=== PATIENT | male | born 1990 | race Caucasian/White ===

== ENCOUNTER 2024-01-30 00:09 | Emergency (ER) | payer SELFPAY ==
[2024-01-30 01:13] VITALS: BP 139/85; PULSE 90; RESP 16; TEMP 36.9; O2SAT 99; BMI 31.3
[2024-01-30 01:40] LABS: IDNOW Serial# 08D9AD1C; Strep A Nucleic Acid Negative (Negative)
[2024-01-30 02:41] VITALS: BP 138/87; PULSE 112; RESP 16; O2SAT 100
[2024-01-30 03:25] LABS: Influenza A PCR NEGATIVE (Negative); Influenza B PCR NEGATIVE (Negative); Resp Syncy Virus RNA Qual PCR NEGATIVE (Negative); SARS COV2 PCR INHOUSE NEGATIVE (Negative)
== END 2024-01-30 07:51 | disposition left against medical advice (07) ==
PROVIDERS: Emergency Provider Emergency Medicine
DX: K08.89 Other specified disorders of teeth and supporting structures (principal); Z11.52 Encounter for screening for COVID-19
CPT/HCPCS: 0241U; 87651; 99283

== ENCOUNTER 2024-02-17 02:24 | Emergency (ER) | payer SELFPAY ==
[2024-02-17 02:40] VITALS: BP 118/67; PULSE 89; RESP 18; TEMP 36.6; O2SAT 100; BMI 28.9
[2024-02-17] MEDS: Lidocaine HCl 1 % 10 ML VIAL INFILTRATI (04:55)
--- NOTE | 2024-02-17 04:55 | PC.NURSE ---
Dr. Bustos at bedside for drainage of right cheek abscess.
--- NOTE | 2024-02-17 05:27 | ED_ITS ---
HPI - Dental/Oral General Chief complaint: Dental/Oral Stated complaint: Swollen Cheek Time Seen by Provider: 02/17/24 04:45 Source: patient Mode of arrival: ambulatory Limitations: no limitations History of Present Illness HPI Narrative: Patient comes to the emergency room complaining of swelling in the right cheek of the face. Patient states that he is known to have a dental abscess, he is sent to started him on clindamycin. However, over last few days, the pain has decreased but the swelling increased. Patient denies fever chills. Denies diarrhea Related Data Previous Rx's ?Medication ?Instructions ?Recorded Lactobacillus rhamnosus GG 15 1 cap PO DAILY #30 caps 02/17/24 billion cell sprinkle capsule (Culturelle) clindamycin HCl 300 mg capsule 300 mg PO TID 10 days #30 caps 02/17/24 Allergies Allergy/AdvReac Type Severity Reaction Status Date / Time Penicillins [PENICILLINS] Allergy Intermediate RASH Unverified 02/17/24 02:41 Review of Systems Review of Systems: Constitutional : No Weight loss, No Fever, No Chills, No Night Sweats, No Fatigue, No Malaise ENT/Mouth : Complaining of dental/facial swelling on the right side, No Hearing loss, No Ear Pain, No Nasal Congestion, No Sinus Pain, No Hoarseness, No sore throat, No Rhinorrhea, No Swallowing Difficulty Eyes: No Eye Pain, No Swelling, No Redness, No Foreign Body, No Discharge, No Vision Changes Cardiovascular : No Chest Pain, No SOB, No Dyspnea on Exertion, No Orthopnea, No Edema, No Palpitations Respiratory : No Cough, No Sputum, No Wheezing, No Smoke Exposure, No Dyspnea Gastrointestinal : No Nausea, No Vomiting, No Diarrhea, No Constipation, No abdominal Pain, No Hematochezia, No Melena Genitourinary : no irregular bleeding, No Dysuria, No Urinary Frequency, No Hematuria, No Urinary Incontinence, No Urgency, No Flank Pain, No Urinary Flow Changes, No Hesitancy Musculoskeletal : No joint pain, No Myalgias, No Joint Swelling Skin : No Skin Lesions, No rash Neuro : No Weakness, No Numbness, No Paresthesias, No Loss of Consciousness, No Dizziness, No Headache Psych : No Anxiety/Panic, No Depression, No SI/HI/AH/VH, No Social Issues, Heme/Lymph: No Bruising, No Bleeding,No Lymphadenopathy Endocrine : No Polyuria, No Polydipsia, No Temperature Intolerance Physical Exam Vital Signs: Vital Signs: Last Vital Signs Temp 97.9 F 02/17/24 02:40 Pulse 89 02/17/24 02:40 Resp 18 02/17/24 02:40 BP 118/67 02/17/24 02:40 Pulse Ox 100 02/17/24 02:40 O2 Del Method Room Air 02/17/24 02:40 BMI result Body Mass Index 28.9 Const: Other: Appearance: Alert. Oriented X3. No acute distress. Eyes: Pupils equal, round and reactive to light. ENT: Pharynx normal. There is a very large abscess between the gums and the cheek on the inside on the right mandibular side. Neck: Normal inspection. Neck supple. No lymph nodes noted. No crepitus CVS: Normal heart rate and rhythm. Pulses normal. Normal S1 and S2 Respiratory: No respiratory distress. Breath sounds normal. No Wheezing. No rales Abdomen: Soft and nontender. No rigidity. No distention. Skin: Skin warm and dry. Normal skin color. Normal skin turgor. Extremities: No lower extremity edema. No Lacerations. No Rash Neuro: Oriented X 3. No motor deficit. No sensory deficit. Moving all extremities. No slurred speech. CN 2 through 12 grossly intact Psych: calm, cooperative, normal affect Medical Decision Making Medical Decision Making MDM Narrative: -I discussed with the patient that drainage need to be done. Patient was infiltrated with 15 cc of viscous lidocaine. Three small incisions were made. Patient drained at least 20 cc of pus. -I discussed with the patient that we will restart him on clindamycin, patient asked to eat yogurt and start using probiotics. Patient states that he has good follow-up with his dentist, and he usually can get in the same day. Patient will call his dentist today. Differential Diagnosis Differential Diagnoses: The differential diagnosis associated with the presentation includes Procedures Abscess I/D Site: oral Side (if applicable): right Local Anesthetic: lidocaine 1% Amount of anesthesia used (mL): 15 Technique: needle aspiration and incised with blade Amount of fluid expressed (mL): 20 Sent for culture/gram staining?: No Irrigation: Yes Packing used?: none Complications: pain Discharge Plan Discharge Clinical Impression: Dental abscess Patient Disposition: Home, Self-Care Instructions: Dental Abscess (ED) Additional Instructions: Please follow-up with your primary care physician tomorrow. If you have any worsening or new symptoms, please return to the emergency room or call 911 Prescriptions: New clindamycin HCl 300 mg capsule 300 mg PO TID 10 Days Qty: 30 0RF Culturelle 15 billion cell capsule, sprinkle 1 cap PO DAILY Qty: 30 0RF Print Language: Tunisian
[2024-02-17] MEDS: Clindamycin HCL 300 MG CAPSULE PO (06:04)
[2024-02-17 06:07] VITALS: BP 116/70; PULSE 89; RESP 18; TEMP 36.6; O2SAT 100
== END 2024-02-17 06:07 | disposition home or self-care (01) ==
PROVIDERS: Emergency Provider Emergency Medicine
DX: K04.7 Periapical abscess without sinus (principal)
CPT/HCPCS: 41800; 99284

== ENCOUNTER 2024-08-06 09:51 | Emergency (ER) | payer BC, SELFPAY ==
--- NOTE | ~2024-08-06 | CT_ITS ---
EXAMINATION: CT ABDOMEN AND PELVIS WITH CONTRAST CLINICAL INFORMATION: Right lower quadrant pain. COMPARISON: None available. TECHNIQUE: Multidetector volumetric images were obtained from the superior aspect of the liver through the pubic symphysis following administration 85 mL of Omnipaque 350 intravenous contrast. Sagittal and coronal reformatted images were obtained on the technologist's workstation. Oral contrast: No This CT examination was performed using dose optimization techniques as appropriate, variously including the following: *Automated exposure control *Adjustment of mA and/or kV according to patient size (this includes techniques or standardized protocols for targeted exams where dose is matched to indication/reason for exam; i.e. extremities or head) *Use of iterative reconstruction technique DLP: 588 mGy-cm FINDINGS: LUNG BASES: The visualized lung bases are unremarkable. LIVER, GALLBLADDER, AND BILIARY TREE: The liver is normal in size, shape, and attenuation. No focal hepatic lesion or biliary ductal dilatation is present. The gallbladder is unremarkable with no evidence of radiopaque gallstones, gallbladder wall thickening, or obvious pericholecystic inflammatory changes. PANCREAS: Unremarkable. SPLEEN: Unremarkable. ADRENAL GLANDS: Unremarkable. KIDNEYS AND URETERS: The kidneys are symmetric in size and enhancement. No hydronephrosis. No perinephric stranding. BLADDER: Underdistended. GASTROINTESTINAL TRACT: There is fecal impaction in the rectum. No small bowel obstruction. Appendix is air-filled. No surrounding inflammatory changes. ABDOMINAL WALL: No significant hernia is appreciated. LYMPH NODES: No bulky lymphadenopathy. VASCULAR: Normal caliber abdominal aorta. PELVIC VISCERA: Unremarkable. OSSEOUS STRUCTURES: No destructive bone lesions. CT/CT abdomen pelvis w IV con IMPRESSION: No CT evidence of acute appendicitis. Electronically signed by: Hemal Overton MD 08/06/2024 02:19 PM EDT
[2024-08-06 10:06] VITALS: BP 145/87; PULSE 83; RESP 16; TEMP 36.8; O2SAT 100; BMI 30.5
[2024-08-06 10:15] LABS: Glucose, Whole Blood 351 mg/dL (60-115)
[2024-08-06 10:22] LABS: MANUAL DIFF FLAG NO
[2024-08-06 10:25] LABS: Basophils Percent Auto 0.4 % (0-2); Eosinophils Absolute Auto 0.1 X10*3/uL (0.0-0.4); Eosinophils Percent Auto 1.1 % (0-4); Hematocrit 44.5 % (42.0-52.0); Hemoglobin 15.8 g/dl (14.0-18.0); Imm Gran Abs Auto 0.05 X10*3/uL (0.00-0.03); Imm Gran Pct Auto 0.6 % (0.0-0.4); Lymphocytes Absolute Auto 1.4 X10*3/uL (1.2-4.9); Lymphocytes Percent Auto 17.3 % (20-40); Mean Corpuscular HGB Conc 35.5 g/dl (31.0-36.0); Mean Corpuscular Hemoglobin 28.9 pg (27.0-33.0); Mean Corpuscular Volume 81.5 fL (80.0-98.0); Mean Platelet Volume 10.7 fL (9.4-12.4); Monocytes Absolute Auto 0.5 X10*3/uL (0.1-1.2); Monocytes Percent Auto 5.9 % (2-11); Neutrophils Absolute Auto 6.1 x10*3/uL (2.0-8.3); Neutrophils Percent Auto 74.7 % (45-73); Platelet Count 196 X10*3/uL (160-400); Red Blood Count 5.46 X10*6/uL (4.60-5.80); Red Cell Distribution Width 12.2 % (11.0-16.0); White Blood Count 8.2 X10*3/uL (4.8-10.8)
[2024-08-06 10:41] LABS: Alanine Aminotransferase 14 U/L (0-40); Albumin Level 4.3 g/dL (3.5-5.0); Alkaline Phosphatase 93 U/L (39-117); Anion Gap 9 (12-20); Aspartate Amino Transferase 13 U/L (5-37); Bilirubin Total 0.6 mg/dL (0.0-1.0); Blood Urea Nitrogen 11 mg/dL (9-16); Calcium 9.1 mg/dL (8.4-10.2); Carbon Dioxide 29 mmol/L (22-29); Chloride 106 mmol/L (96-108); Creatinine Clr Calc Pharmacy 121.4; Estimated Glomerular Filt Rate > 60; Glucose Random 342 mg/dL (60-115); Sodium 140 mmol/L (135-145); Total Protein 6.9 g/dL (6.5-8.0)
--- NOTE | 2024-08-06 10:51 | ED.GENADULT ---
HPI - General Adult General Chief complaint: Abdominal Pain Stated complaint: Abd pain Time Seen by Provider: 08/06/24 10:49 Source: patient Mode of arrival: ambulatory Limitations: no limitations History of Present Illness ED Provider: akshat SHANE narrative: Patient is a 34-year-old uncircumcised male presenting to the emergency department with complaint of right lower quadrant abdominal pain radiating around to back for the past few days as well as swelling to foreskin for the past week. Denies nausea, vomiting, diarrhea, or constipation. Denies fevers. Reports white discharge at onset of urine stream at times. Has been applying OTC lotrimin to foreskin with little change. He is able to partially retract the foreskin, and has not had any difficulty urinating. Denies any known history of diabetes but reports family history positive for DM. Reports recent polydipsia and polyuria. MD complaint: abdominal pain, foreskin swelling Onset (ago): day(s) Location: abdomen Radiation: back Severity: moderate Quality: aching Pain Consistency: colicky Associated symptoms: other Treatments prior to arrival: other Related Data Previous Rx's ?Medication ?Instructions ?Recorded Lactobacillus rhamnosus GG 15 1 cap PO DAILY #30 caps 02/17/24 billion cell sprinkle capsule (Culturelle) clindamycin HCl 300 mg capsule 300 mg PO TID 10 days #30 caps 02/17/24 clotrimazole 1 % topical cream 1 appl topical BID 4 weeks #30 08/06/24 grams metformin 500 mg tablet 500 mg PO BID #60 tabs 08/06/24 Allergies Allergy/AdvReac Type Severity Reaction Status Date / Time Penicillins [PENICILLINS] Allergy Intermediate RASH Verified 08/06/24 10:06 Review of Systems Review of Systems: As per HPI. Yes all other systems are reviewed and are negative Constitutional: Constitutional: Reports as per HPI PMFSH Social History Social History Smoked in Last 30 Days: No Use of substances other than those prescribed or required for medical reasons: No Advance Directives: No Advance Directives Information Provided: Yes Do you have a plan to hurt others: No Plan Physical Exam ED Vital Signs: Vital Signs - 24 hr 08/06/24 10:06 08/06/24 10:56 08/06/24 12:00 Temperature 98.2 F 98.3 F 97.4 F Pulse Rate 83 81 75 Respiratory Rate 16 18 16 Blood Pressure 145/87 H 149/81 H 118/73 Pulse Oximetry 100 99 100 Oxygen Delivery Method Room Air Room Air Room Air BMI result Body Mass Index 30.5 Vital signs have been reviewed and appear to be correct. Blood pressure normal. Heart rate normal. Respiratory rate normal. Temperature normal. Oxygen saturation normal. Const General: cooperative, healthy appearing and no acute distress Orientation/consciousness: oriented to person, oriented to place, oriented to time and patient oriented x3 Limitations: no limitations HENVT Head: Yes normocephalic and Yes atraumatic Ears: external ears normal General nose exam: Normal external nose present Face and sinus: Yes face symmetric Mouth: oropharynx normal and moist mucous membranes Throat: Yes uvula midline Eyes Pupils: Equal, round and reactive pupils present Neck Neck: Yes normal visual inspection and Yes supple Resp Effort & Inspection: normal respiratory effort and able to speak in complete sentences Auscultation: clear to auscultation bilaterally Cardio Rate: regular rate Rhythm: regular rhythm Heart sounds: S1 normal heart sound present and S2 normal heart sound present GI Palpation (GI): Soft to palpation and nontender Auscultation: normoactive bowel sounds Other: Exam chaperoned by ANAHY Napier. General: Yes no CVA tenderness Penis: uncircumcised, non retractile foreskin, Localized penile swelling present and other (fissures) Scrotum: scrotum normal Back/Spine/Pelvis Back: no CVA tenderness Skin General skin exam: elasticity normal and turgor normal Neuro General: oriented to person, oriented to place, oriented to time, patient oriented x3, moves all extremities, no focal motor deficits and CN's II-XI intact bilaterally Cranial nerves: Yes Equal, round and reactive pupils present Cognition (Neuro): normal cognition Extrem General: Yes full ROM, Yes no pedal edema and Yes no calf tenderness Psych Mental Status: mental status grossly normal Affect: normal affect Thought process: Normal thought process present Medications Administered Discontinued Medications Generic Name Dose Route Start Last Admin Trade Name Freq PRN Reason Stop Dose Admin Iohexol 100 ml 08/06/24 12:36 08/06/24 12:36 Iohexol 350 Mg/Ml 100 Ml Infus..Btl IV 08/06/24 12:37 85 ml ONCE ONE Administration Medical Decision Making Medical Decision Making [facility] Narrative: Patient is a 34-year-old uncircumcised male presenting to the emergency department with complaint of right lower quadrant abdominal pain radiating around to back for the past few days as well as swelling to foreskin for the past week. On exam patient is awake, A+Ox3, VS WNL, afebrile, normal neurological exam without focal deficits, physical exam findings as above. Given reported symptoms and physical exam findings, initial differential includes appendicitis, ureteral calculi, hydronephrosis, UTI, balanitis, diabetes. Do not suspect phimosis as patient can partially retract foreskin and has not had difficulty urinating. Do not suspect Bipin's. Labs notable for hyperglycemia without anion gap, no evidence of DKA, hemoglobin A1c 11.3. Urinalysis is without evidence of infection. CT NG negative. CT notable for no evidence of appendicitis. My interpretation is in agreement with the radiologist's interpretation. Results discussed with patient and all questions answered, will start on metformin, and instructed patient he will need to establish care with a PCP for ongoing management of his diabetes. Will treat balanitis with clotrimazole. Return precautions discussed at bedside. Patient verbalized understanding of and agreement with plan. Differential Diagnosis Differential Diagnoses: The differential diagnosis associated with the presentation includes As per [facility] Admission/Observation Consideration of admission/observation: Escalation of care including admission/observation considered Patient would have been admitted to the hospital had their work up had any findings where hospital admission was appropriate and their clinical presentation warranted hospital admission. Lab Data [facility] Lab Attestation statement: I reviewed the patient's lab results. as per [facility] 08/06/24 10:18 08/06/24 10:18 Labs: Lab Results 08/06/24 08/06/24 08/06/24 Range/Units 10:10 10:18 11:10 WBC 8.2 (4.8-10.8) X10*3/uL RBC 5.46 (4.60-5.80) X10*6/uL Hgb 15.8 (14.0-18.0) g/dl Hct 44.5 (42.0-52.0) % MCV 81.5 (80.0-98.0) fL MCH 28.9 (27.0-33.0) pg MCHC 35.5 (31.0-36.0) g/dl RDW 12.2 (11.0-16.0) % Plt Count 196 (160-400) X10*3/uL MPV 10.7 (9.4-12.4) fL Immature Gran % (Auto) 0.6 H (0.0-0.4) % Neut % (Auto) 74.7 H (45-73) % Lymph % (Auto) 17.3 L (20-40) % Wallace % (Auto) 5.9 (2-11) % Eos % (Auto) 1.1 (0-4) % Baso % (Auto) 0.4 (0-2) % Lymph # (Auto) 1.4 (1.2-4.9) X10*3/uL Wallace # (Auto) 0.5 (0.1-1.2) X10*3/uL Eos # (Auto) 0.1 (0.0-0.4) X10*3/uL Baso # (Auto) 0.0 (0.0-0.2) X10*3/uL Abs Immat Gran (auto) 0.05 H (0.00-0.03) X10*3/uL Absolute Neuts (auto) 6.1 (2.0-8.3) x10*3/uL Absolute Nucleated RBC 0.000 (0.0-0.012) X10*3/uL Nucleated RBC % (auto) 0.0 (0.0-0.2) /100WBC Sodium 140 (135-145) mmol/L Potassium 4.0 (3.3-5.1) mmol/L Chloride 106 (96-108) mmol/L Carbon Dioxide 29 (22-29) mmol/L Anion Gap 9 L (12-20) BUN 11 (9-16) mg/dL Creatinine 0.95 (0.5-1.4) mg/dL Estim Creat Clear Calc 121.4 Estimated GFR > 60 POC Glucose 351 H* (60-115) mg/dL Random Glucose 342 H (60-115) mg/dL Estimat Average Glucose 278 mg/dL Hemoglobin A1c % 11.3 H (<6.0) % Calcium 9.1 (8.4-10.2) mg/dL Total Bilirubin 0.6 (0.0-1.0) mg/dL AST 13 (5-37) U/L ALT 14 (0-40) U/L Alkaline Phosphatase 93 (39-117) U/L Total Protein 6.9 (6.5-8.0) g/dL Albumin 4.3 (3.5-5.0) g/dL Urine Color Yellow Urine Appearance Clear Urine pH 5.5 (5.0-9.0) Ur Specific [place] >= 1.030 H (1.005-1.025) Urine Protein Negative (Neg-Trace) mg/dL Urine Glucose (UA) >=1000 H (Negative) mg/dL Urine Ketones Negative (Negative) mg/dL Urine Blood Negative (Negative) Urine Nitrite Negative (Negative) Ur Leukocyte Esterase Negative (Negative) Urine RBC 0-2 (0-2) /HPF Urine WBC 0-5 (0-5) /HPF Ur Squamous Epith Cells 0-2 (0-2) /HPF Urine Bacteria None Seen (None Seen) Hyaline Casts 0-2 (0-2) /LPF Chlam trachomat DNA PCR NOT DETECTED (Not Detect.) N.gonorrhoeae DNA (PCR) NOT DETECTED (Not Detect.) Independent Interpretation I performed an independent interpretation of an: CT Scan Interpretation: No evidence of appendicitis or other acute abnormality of CT A/P. Radiology Impression Discussion of test interpretation with radiology: I have reviewed the radiologist's reading. Radiologist Impression: CT/CT abdomen pelvis w IV con IMPRESSION: No CT evidence of acute appendicitis. External Record Review External record reviewed: Inpatient record, Office record and Outpatient record Prescription Management I considered prescription management with: Other Discharge Plan Discharge Clinical Impression: Balanitis, New onset type 2 diabetes mellitus Patient Disposition: Home, Self-Care Instructions: Metformin (By mouth), Type 2 Diabetes in Adults: New Diagnosis (DC), Balanitis (ED), Diabetes and Your Skin (ED), Diabetes and Nutrition (ED), Diabetes and Exercise (ED) Additional Instructions: You were evaluated in the emergency department today for abdominal pain. Your labs show evidence of new onset diabetes, and you are being started on a medication called Metformin to control your blood glucose levels. Take this as prescribed. You are also being treated for a skin infection of your penis, called balanitis. It is very important that you establish care with a primary care provider for ongoing management of your diabetes. Return to the emergency deparment if you develop increased swelling, discharge, are unable to urinate, develop a fever, have dizziness, lightheadedness, fainting, or any other new or concerning symptoms. Prescriptions: New metformin 500 mg tablet 500 mg PO BID Qty: 60 0RF clotrimazole 1 % cream 1 appl topical BID 28 Days Qty: 30 0RF Rx Instructions: or until symptoms resolve No Action clindamycin HCl 300 mg capsule 300 mg PO TID 10 Days Qty: 30 0RF Culturelle 15 billion cell capsule, sprinkle 1 cap PO DAILY Qty: 30 0RF Referrals: [facility] Family Medicine [Provider Group] [facility] Primary Care, Tessa [Provider Group] [facility] Primary Care,Matthew [Provider Group] [facility] In [facility] [Provider Group] Print Language: Azerbaijani
[2024-08-06 10:56] VITALS: BP 149/81; PULSE 81; RESP 18; TEMP 36.8; O2SAT 99
[2024-08-06 11:19] LABS: Appearance Urine Clear; Color Urine Yellow; Glucose Urine UA >=1000 mg/dL (Negative); Leukocyte Esterase Urine Negative (Negative); Nitrite Urine Negative (Negative); PH 5.5 (5.0-9.0); Specific Gravity - Urine >= 1.030 (1.005-1.025); UMIC TRIGGER UACC YES; Urine Blood Negative (Negative); Urine Ketones Negative (Negative); Urine Protein Negative (Neg-Trace)
[2024-08-06 11:25] LABS: Estimated Average Glucose 278 mg/dL; Hemoglobin A1c % 11.3 % (<6.0); Total Hemoglobin (HGBA1C) 4056.6085 umol/L
[2024-08-06 11:25] LABS: Bacteria Urine None Seen (None Seen); Hyaline Casts Urine 0-2 /LPF (0-2); RBC Urine 0-2 /HPF (0-2); Squamous Epithelial Cell Urine 0-2 /HPF (0-2); WBC Urine 0-5 /HPF (0-5)
[2024-08-06 12:00] VITALS: BP 118/73; PULSE 75; RESP 16; TEMP 36.3; O2SAT 100
[2024-08-06] MEDS: iohexoL 350 MG/ML 100 ML INFUS..BTL IV (12:36)
[2024-08-06 13:42] LABS: CT PCR NOT DETECTED (Not Detect.); NG PCR NOT DETECTED (Not Detect.)
[2024-08-06 15:40] VITALS: BP 120/72; PULSE 74; RESP 18; TEMP 36.6; O2SAT 97
== END 2024-08-06 15:41 | disposition home or self-care (01) ==
PROVIDERS: Registered Nurse Emergency; Emergency Provider Emergency Medicine
DX: E11.65 Type 2 diabetes mellitus with hyperglycemia (principal); R10.31 Right lower quadrant pain; R36.9 Urethral discharge, unspecified; R63.1 Polydipsia; R35.89 Other polyuria
CPT/HCPCS: 36415; 74177; 80053; 81001; 82947; 83036; 85025; 87491; 87591; 99284; Q9967

== ENCOUNTER 2024-09-30 16:52 | Emergency (ER) | payer BC, SELFPAY ==
--- NOTE | ~2024-09-30 | XR_ITS ---
EXAMINATION: XR chest 2V CLINICAL INFORMATION: chest pain COMPARISON: Chest radiograph 02/04/2020 TECHNIQUE: 2 views of the chest FINDINGS: Clear lungs. No pneumothorax. No pleural effusion. Unchanged cardiomediastinal silhouette. XR/XR chest 2V IMPRESSION: No acute cardiopulmonary findings. Electronically signed by: Ivanna Amos MD 09/30/2024 05:55 PM [facility] [place]
--- NOTE | 2024-09-30 16:58 | ECG_ITS ---
Test Reason : chest pain Blood Pressure : / mmHG Vent. Rate : 088 BPM Atrial Rate : 088 BPM P-R Int : 136 ms QRS Dur : 082 ms QT Int : 340 ms P-R-T Axes : 045 008 026 degrees QTc Int : 411 ms Normal sinus rhythm Normal ECG No previous ECGs available Referred By: Shea Ward Electronically Signed By:Edward Schilling
[2024-09-30 17:05] VITALS: BP 144/81; PULSE 86; RESP 18; TEMP 36.6; O2SAT 98; BMI 28.1
--- NOTE | 2024-09-30 17:05 | ED_ITS ---
HPI - General Adult General Chief complaint: Chest Pain Stated complaint: Chest pain Time Seen by Provider: 09/30/24 20:02 Source: patient, RN notes reviewed and old records reviewed Mode of arrival: ambulatory Limitations: no limitations History of Present Illness ED Provider: Ovidio SHANE narrative: 34-year-old male with past medical history significant for diabetes presents for evaluation of left-sided chest pain. He reports that his pain radiates to his left shoulder He has had the pain for the last few days pain His pain is worse with movement. He denies any shortness of breath, palpitations. He was diagnosed with diabetes in July and was started on metformin. He reports that he ran out of his metformin yesterday. He also was diagnosed with balanitis on July and reports that it never truly went away Related Data Previous Rx's ?Medication ?Instructions ?Recorded Lactobacillus rhamnosus GG 15 1 cap PO DAILY #30 caps 02/17/24 billion cell sprinkle capsule (Culturelle) clindamycin HCl 300 mg capsule 300 mg PO TID 10 days #30 caps 02/17/24 clotrimazole 1 % topical cream 1 appl topical BID 4 weeks #30 08/06/24 grams metformin 500 mg tablet 500 mg PO BID #60 tabs 08/06/24 clotrimazole 1 % topical ointment 1 appl topical BID 2 weeks #56.7 09/30/24 grams metformin 500 mg tablet 500 mg PO BID #60 tabs 09/30/24 Allergies Allergy/AdvReac Type Severity Reaction Status Date / Time Penicillins [PENICILLINS] Allergy Intermediate RASH Verified 09/30/24 17:06 Review of Systems 2 Constitutional: Constitutional: Denies body ache(s), Denies chills and Denies fever(s) Eyes: Eyes: Denies blurry vision ENT: Denies vertigo and Denies dizziness Cardiovascular: Cardiovascular: Reports chest pain Respiratory: Respiratory: Denies cough Gastrointestinal: Gastrointestinal: Denies abdominal pain Musculoskeletal: Musculoskeletal: Denies back pain, Reports arthralgias, Reports joint swelling, Reports limited range of motion and Reports radiating pain into limb Integumentary/Breasts: Skin/Breast: Denies rash Neurologic: Denies vertigo and Denies dizziness PMFSH Social History Social History Advance Directives: No Advance Directives Information Provided: No Do you have a plan to hurt others: No Plan Physical Exam ED Vital Signs: Vital Signs - 24 hr 09/30/24 17:05 09/30/24 19:20 09/30/24 20:27 Temperature 98 F 98.3 F Pulse Rate 86 73 73 Respiratory Rate 18 12 12 Blood Pressure 144/81 H 119/64 119/64 Pulse Oximetry 98 99 99 Oxygen Delivery Method Room Air Room Air Room Air BMI result Body Mass Index 28.1 Const General: healthy appearing, comfortable, no acute distress, alert and awake Nutritional Appearance: well nourished Orientation/consciousness: patient oriented x3 HENMT Head: Yes normocephalic and Yes atraumatic Eyes Eyelids: Yes eyelids normal Conjunctivae: conjunctivae normal Sclerae: sclerae normal Corneas: corneas normal Pupils: Equal, round and reactive pupils present EOM: EOMs intact bilaterally Neck Neck: Yes full ROM Chest Other: Tenderness to palpation of the left chest wall into the left anterior shoulder. No deformity. The patient has full range of motion of the left upper extremity at the shoulder, elbow and wrist. Resp Effort & Inspection: normal respiratory effort, able to speak in complete sentences and not labored Other: Mild edema to the foreskin. No obvious drainage from the urethra Back/Spine/Pelvis Other: Tenderness to the left trapezius muscle group. Skin General skin exam: elasticity normal Neuro General: patient oriented x3 Cranial nerves: Yes Equal, round and reactive pupils present and Yes Bilaterally intact EOM present Cognition (Neuro): normal cognition Extrem Other: Moving all extremities well without any obvious deformities Course Course Course Narrative: This is a rapid medical exam performed by Farida Ward NP: Additional HPI, ROS, PE not included below will be deferred to primary provider. Patient is a 34-year-old male presenting to the ED with complaint of left sided chest pain radiating to shoulder for the past few days. Denies other symptoms. Plan: EKG, labs, CXR Medications Administered Discontinued Medications Generic Name Dose Route Start Last Admin Trade Name Freq PRN Reason Stop Dose Admin Ketorolac Tromethamine 30 mg 09/30/24 20:12 09/30/24 20:21 Ketorolac Tromethamine 30 Mg/Ml Vial IM 09/30/24 20:13 30 mg ONCE ONE Administration Metformin HCl 1,000 mg 09/30/24 20:12 09/30/24 20:21 Metformin Hcl 1,000 Mg Tablet PO 09/30/24 20:13 1,000 mg ONCE ONE Administration Medical Decision Making Medical Decision Making [facility] Narrative: 34-year-old male past medical history significant for diabetes presents for evaluation of chest pain. His cardiac workup was negative, his EKG is nonischemic, troponin negative despite several days of chest pain. His pain is reproducible. This is most likely musculoskeletal pain. The patient also has a balanitis that he has had for a couple of months. I discussed this with the patient we will give him another prescription for clotrimazole. I will refer the patient to Urology as you may benefit from circumcision if his symptoms do not improve. The patient also would like a refill of his metformin which I provided for 1 month. He was having difficulty getting into a PCP Differential Diagnosis Differential Diagnoses: The differential diagnosis associated with the presentation includes Chest pain ACS less likely Balanitis Muscle strain Costochondritis GERD Admission/Observation Consideration of admission/observation: Escalation of care including admission/observation considered Patient rules out for ACS Lab Data [facility] Lab Attestation statement: I reviewed the patient's lab results. No leukocytosis or significant anemia. Normal platelet count. No electrolyte abnormalities. Random glucose elevated at 273. There was no evidence of DKA the patient has not take his metformin today 09/30/24 17:25 09/30/24 17:25 Labs: Lab Results 09/30/24 Range/Units 17:25 WBC 8.3 (4.8-10.8) X10*3/uL RBC 5.26 (4.60-5.80) X10*6/uL Hgb 15.0 (14.0-18.0) g/dl Hct 41.5 L (42.0-52.0) % MCV 78.9 L (80.0-98.0) fL MCH 28.5 (27.0-33.0) pg MCHC 36.1 H (31.0-36.0) g/dl RDW 12.0 (11.0-16.0) % Plt Count 224 (160-400) X10*3/uL MPV 10.7 (9.4-12.4) fL Immature Gran % (Auto) 0.5 H (0.0-0.4) % Neut % (Auto) 60.7 (45-73) % Lymph % (Auto) 26.8 (20-40) % [place] % (Auto) 5.4 (2-11) % Eos % (Auto) 6.1 H (0-4) % Baso % (Auto) 0.5 (0-2) % Lymph # (Auto) 2.2 (1.2-4.9) X10*3/uL [place] # (Auto) 0.5 (0.1-1.2) X10*3/uL Eos # (Auto) 0.5 H (0.0-0.4) X10*3/uL Baso # (Auto) 0.0 (0.0-0.2) X10*3/uL Abs Immat Gran (auto) 0.04 H (0.00-0.03) X10*3/uL Absolute Neuts (auto) 5.0 (2.0-8.3) x10*3/uL Absolute Nucleated RBC 0.000 (0.0-0.012) X10*3/uL Nucleated RBC % (auto) 0.0 (0.0-0.2) /100WBC PT 10.6 L (10.9-12.4) SEC INR 0.9 (0.9-1.1) Sodium 141 (135-145) mmol/L Potassium 4.1 (3.3-5.1) mmol/L Chloride 108 (96-108) mmol/L Carbon Dioxide 27 (22-29) mmol/L Anion Gap 10 L (12-20) BUN 19 H (9-16) mg/dL Creatinine 0.91 (0.5-1.4) mg/dL Estim Creat Clear Calc 122.0 Estimated GFR > 60 Random Glucose 273 H (60-115) mg/dL Calcium 8.9 (8.4-10.2) mg/dL Total Bilirubin 0.4 (0.0-1.0) mg/dL AST 15 (5-37) U/L ALT 12 (0-40) U/L Alkaline Phosphatase 79 (39-117) U/L Troponin I High Sens < 2.7 (<3.5-35.0) ng/L Total Protein 7.1 (6.5-8.0) g/dL Albumin 4.3 (3.5-5.0) g/dL Independent Interpretation I performed an independent interpretation of an: EKG (Normal sinus rhythm with a rate of [address] segment elevation or depressions. Nondiagnostic EKG) Radiology Impression Discussion of test interpretation with radiology: I have reviewed the radiologist's reading. Radiologist Impression: FINDINGS: Clear lungs. No pneumothorax. No pleural effusion. Unchanged cardiomediastinal silhouette. XR/XR chest 2V IMPRESSION: No acute cardiopulmonary findings. Electronically signed by: Ivanna Amos MD 09/30/2024 05:55 PM [facility] [place] Discharge Clinical Impression: Chest pain, Acute hyperglycemia, Balanitis Patient Disposition: Home, Self-Care Instructions: Chest Pain (ED), Diabetic Hyperglycemia (ED) Additional Instructions: Your workup in the ER today was reassuring. This includes your blood work, EKG, chest x-ray. Your pain is most likely related to a muscle strain. Use ibuprofen or Tylenol for pain. I recommend using clotrimazole with betamethasone Prescriptions: New clotrimazole 1 % ointment 1 appl topical BID 14 Days Qty: 56.7 0RF metformin 500 mg tablet 500 mg PO BID Qty: 60 0RF No Action clindamycin HCl 300 mg capsule 300 mg PO TID 10 Days Qty: 30 0RF Culturelle 15 billion cell capsule, sprinkle 1 cap PO DAILY Qty: 30 0RF metformin 500 mg tablet 500 mg PO BID Qty: 60 0RF clotrimazole 1 % cream 1 appl topical BID 28 Days Qty: 30 0RF Rx Instructions: or until symptoms resolve Referrals: Candido Chery MD [Physician] - (recurrent balanitis) Interventions: ED Discharge Assessment Last Done: 09/30/24 20:27 Discharge Date/Time: 09/30/24 20:29 Print Language: Arabic
[2024-09-30 17:29] LABS: MANUAL DIFF FLAG NO
[2024-09-30 17:34] LABS: Basophils Percent Auto 0.5 % (0-2); Eosinophils Absolute Auto 0.5 X10*3/uL (0.0-0.4); Eosinophils Percent Auto 6.1 % (0-4); Hematocrit 41.5 % (42.0-52.0); Imm Gran Abs Auto 0.04 X10*3/uL (0.00-0.03); Imm Gran Pct Auto 0.5 % (0.0-0.4); Lymphocytes Absolute Auto 2.2 X10*3/uL (1.2-4.9); Lymphocytes Percent Auto 26.8 % (20-40); Mean Corpuscular HGB Conc 36.1 g/dl (31.0-36.0); Mean Corpuscular Hemoglobin 28.5 pg (27.0-33.0); Mean Corpuscular Volume 78.9 fL (80.0-98.0); Mean Platelet Volume 10.7 fL (9.4-12.4); Monocytes Absolute Auto 0.5 X10*3/uL (0.1-1.2); Monocytes Percent Auto 5.4 % (2-11); Neutrophils Percent Auto 60.7 % (45-73); Platelet Count 224 X10*3/uL (160-400); Red Blood Count 5.26 X10*6/uL (4.60-5.80); White Blood Count 8.3 X10*3/uL (4.8-10.8)
[2024-09-30 17:44] LABS: Alanine Aminotransferase 12 U/L (0-40); Albumin Level 4.3 g/dL (3.5-5.0); Alkaline Phosphatase 79 U/L (39-117); Anion Gap 10 (12-20); Aspartate Amino Transferase 15 U/L (5-37); Bilirubin Total 0.4 mg/dL (0.0-1.0); Blood Urea Nitrogen 19 mg/dL (9-16); Calcium 8.9 mg/dL (8.4-10.2); Carbon Dioxide 27 mmol/L (22-29); Chloride 108 mmol/L (96-108); Estimated Glomerular Filt Rate > 60; Glucose Random 273 mg/dL (60-115); Potassium 4.1 mmol/L (3.3-5.1); Sodium 141 mmol/L (135-145); Total Protein 7.1 g/dL (6.5-8.0)
[2024-09-30 17:47] LABS: INTERNATIONAL NORM RATIO 0.9 (0.9-1.1); Prothrombin Time 10.6 SEC (10.9-12.4)
[2024-09-30 17:57] LABS: Troponin-I High Sensitivity < 2.7 ng/L (<3.5-35.0)
[2024-09-30 19:20] VITALS: BP 119/64; PULSE 73; RESP 12; O2SAT 99
[2024-09-30] MEDS: metFORMIN HCl 1,000 MG TABLET 1000 MG PO (20:21)
[2024-09-30] MEDS: Ketorolac Tromethamine 30 MG/ML VIAL IM (20:21)
[2024-09-30 20:27] VITALS: BP 119/64; PULSE 73; RESP 12; TEMP 36.8; O2SAT 99
== END 2024-09-30 20:29 | disposition home or self-care (01) ==
PROVIDERS: Registered Nurse Emergency; Emergency Provider Emergency Medicine
DX: R07.89 Other chest pain (principal); E11.65 Type 2 diabetes mellitus with hyperglycemia; N48.1 Balanitis; M25.512 Pain in left shoulder; Z79.84 Long term (current) use of oral hypoglycemic drugs; Z79.899 Other long term (current) drug therapy
CPT/HCPCS: 36415; 71046; 80053; 84484; 85025; 85610; 93005; 96372; 99284; J1885

== ENCOUNTER → 2024-09-30 16:58 | Outpatient (BNV) | payer BC, SELFPAY | PROVIDERS: Emergency Provider Emergency Medicine; Visit Provider Internal Medicine Cardiovascular Disease | DX: R07.9 Chest pain, unspecified (principal) | CPT/HCPCS: 93010 ==

== ENCOUNTER → 2024-11-16 11:28 | Outpatient (BNVA) | payer BC, SELFPAY | PROVIDERS: Visit Provider Urology ==

== ENCOUNTER → 2024-11-16 11:28 | Outpatient (AMB) | payer BC, SELFPAY | END | disposition home or self-care (01) | PROVIDERS: Visit Provider Urology | CPT/HCPCS: 99204 ==

== ENCOUNTER 2025-02-26 07:51 | Outpatient (REF) | payer BC, SELFPAY ==
--- OUTSIDE RECORDS SUMMARY | 2025-02-26 07:55 | XMS_ITS | Clinical Summary ---
Author Organization [employer] [facility] Address [address] [place] [address] Care Team Providers Care Chief Substation Operator Name Role Phone Unavailable Primary Care Provider Unavailabl e Allergies Active Allergy Reactions Criticality Noted Date Comments Penicillin G 09/29/2018 Medications chlorhexidine (Peridex) 0.12 % solution Swish 15 mL morning and night for 1 minute. Spit, do not swallow. Do not eat or drink for 30 minutes following use. 473 mL 4 Active Additional Information Patient not taking.Reported on 03/15/2024 acetaminophen (Tylenol) 500 MG tablet Take 1 tablet (500 mg) by mouth every 6 (six) hours if needed for mild pain for up to 20 doses. 20 tablet 4 Active ibuprofen 600 MG tablet Take 1 tablet (600 mg) by mouth every 6 (six) hours if needed for mild pain for up to 20 doses. 20 tablet 4 Active clonazePAM (KlonoPIN) 0.5 MG tabletIndicatio ns:Dental abscess,Trismus Take 0.5 tablets (0.25 mg) by mouth 2 times daily. 30 tablet 4 Active Active Problems Problem Noted Date Diagnosed Date Trismus 03/15/2024 History of tooth extraction 02/17/2024 Dental abscess 02/06/2024 Encounters Date Type Department Care Team Description 02/18/[address] [facility] [address] [place] [address] Yung Muniz MD Pre-visit Planning (SDOH screening negative and Tobacco screening negative) 12/11/[address] [facility] [address] [place] [address] Yung Muniz MD new pt appt from Last 3 Months Social History Tobacco Use Types Packs/Day Years Used Date Smoking Tobacco: Never Smokeless Tobacco: Never Tobacco Cessation:Counseling Given: Not Answered Alcohol Use Standard Drinks/Week Comments Yes 0 (1 standard drink = 0.6 oz pur e alcohol) Housing Stability Answer Date Recorded What is your housing situation today? I have irineo mullins 02/18/[address] you li ve. Do you have problems with any of the following? None of the above 02/18/2025 Food Insecurity Answer Date Recorded Within the past 12 months, y ou worried that your food would run out before you got money to buy more: Never True 02/18/2025 Within the past 12 months,th e food you bought just didn't last and you didn't have enough money to get more: Never True 09/2025 Transportation Answer Date Recorded In the past 12 months, has l ack of transportation kept you from medical appts, meetings, work or from getting things needed for daily living? No 02/18/2025 Utilities Answer Date Recorded In the past 12 months, has t he electric, gas, oil or water company threatened to shut off services in your home? No 02/18/2025 Internet Access Answer Date Recorded Internet Access Q1 Yes 02/18/2025 Internet Access Q2 Not on file 02/18/2025 Sex and Gender Information Value Date Recorded Sex Assigned at Male 08/09/2022 10:16 AM EDT Legal Sex Male 10:16 AM EDT Gender Identity Male 08/09/2022 10:16 AM EDT Sexual Orientation Straight 08/09/2022 10 :16 AM EDT Last Filed Vital Signs Vital Sign Reading Time Taken Comments Blood Pressure 126/84 03/15/2024 10:27 AM EDT Pulse 76 03/15/2024 10:27 AM EDT Temperature - - Respiratory Rate - - Oxygen Saturation - - Inhaled Oxygen Concentration - - Weight - - Height - - Body Mass Index - - Plan of Treatment Upcoming Encounters Date Type Department Care Team (Late st Contact Info) Description 02/27/2025 9:30 AM EDT Office Visit [facility] [address] [place] [address] April Sadler MD [address] [place] [address] Health Maintenance Due Date Last Done Comments Depression Screening 1988 HIV Screening 1988 Lipid Panel 1988 Disability Screening 1988 Alcohol/Substance Use Screening 2000 Family Planning (PISQ) 2003 Hepatitis C Screening 2006 DTaP/Tdap/Td Vaccines (1 - Tdap) 2007 Hepatitis A Vaccines (1 of 2 - Risk 2-dose series) 2007 Dental Oral Exam 09/15/2023 03/15/2023 Dental Prophylaxis 09/15/2023 03/15/2023 Dental X-Ray: Bitewings 03/16/2024 03/15/2023 COVID-19 Vaccine (1 - 2023-2 5 season) 2024 Influenza Vaccine (#1) 2024 Tobacco Screening 03/15/2025 03/15/2024 SDOH Screening 02/18/2026 02/18/2025 Dental X-Ray: Full Mouth 03/16/2027 024, 01/30/2024, 09/20/2023 Zoster Vaccines (1 of 2) 2038 RSV Patients and Patients Aged 60 years or older (1 - 1-dose 75+ series) 2063 Hepatitis B Vaccines Completed 08/28/2001, 02/10/2001, 12/10/1998 HIB Vaccines Aged Out No longer eligi ble based on patient's age to complete this topic HPV Vaccines Aged Out No longer eligi ble based on patient's age to complete this topic IPV Vaccines Aged Out No longer eligi ble based on patient's age to complete this topic Meningococcal B Vaccine Aged Out No l onger eligible based on patient's age to complete this topic Meningococcal Vaccine Aged Out No eleazar dalton eligible based on patient's age to complete this topic Pneumococcal Vaccine: Pediatrics (0 to 5 Years) and At-Risk Patients (6 to 49) Years) Aged Out No longer eligible b ased on patient's age to complete this topic RSV under 20 months Aged Out No longe r eligible based on patient's age to complete this topic Rotavirus Vaccines Aged Out No longer eligible based on patient's age to complete this topic Procedures Procedure Name Priority Date/Time Associated Diagnosis Comments PANORAMIC RADIOGRAPHIC IMAGE Routine 03/15/2024 10:30 AM EDT PROPHYLAXIS - ADULT Routine 03/15/2023 8 :00 AM EDT BITEWINGS - 4 RADIOGRAPHIC IMAGES Routine 03/15/2023 8:00 AM EDT PERIODIC ORAL EVALUATION - ESTABLISHED PATIENT Routine 03/15/2023 8:00 AM EDT from Last 3 Months or Most Recently Relevant to Health Maintenance Insurance [employer] PARTIAL DENTAL - [place] PARTIAL (MEDICAID)
[2025-02-26 10:44] LABS: Estimated Average Glucose 123 mg/dL; Hemoglobin A1C 150.9182 umol/L; Hemoglobin A1c % 5.9 % (<6.0); Total Hemoglobin (HGBA1C) 3690.2661 umol/L
== END 2025-02-26 07:52 | disposition home or self-care (01) ==
LOC: HO.HMGCLDS 07:51
PROVIDERS: PCP Internal Medicine; Visit Provider Urology
DX: E11.9 Type 2 diabetes mellitus without complications (principal)
CPT/HCPCS: 36415; 83036

== ENCOUNTER 2025-02-28 13:09 | Outpatient (AMB) | payer BC, SELFPAY ==
--- NOTE | 2025-02-28 13:10 | A.OFFVIS_ITS ---
Intake Visit Reasons: 3M Labs- r/s Intake Note: Patient is present for 3m/labs Urology Medication:metformin,glipizide Antibiotic Allergy:penicillins Blood Thinner:none Belt Knife Feeder Required: No Allergies Penicillins [PENICILLINS] Allergy (Intermediate, Verified 02/28/25 13:10) RASH HPI Comments Details: Rebel is a pleasant male. 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 Telemedicine Evaluation 15 min Consultation D[employer] Video HbA1c has fallen dramatically to 5.9 He is doing an amazing job controlling his diabetes He says he would love to proceed with a circumcision We will get this organized Recurrent balanitis in setting of diabetes Recommend circumcision Diabetic control needs HbA1c under 8.5 Refilled metformin, added glipizide Is struggling to find PCP Review of Systems Const All systems reviewed & are unremarkable except as noted in HPI and below Reports no additional complaints Resp Reports no additional complaints GI Reports no additional complaints Reports as per HPI Musc Reports no additional complaints Physical Exam Telemedicine evaluation Appropriate responses Regular breathing rate and rhythm HEENT Head: Yes normal to inspection Ears: hearing grossly normal bilaterally Eyes General: appearance normal, both eyes and all related structures Neck Neck: Yes normal visual inspection Chest Chest palpation & inspection: normal inspection of the chest Resp Effort & Inspection: normal respiratory effort and able to speak in complete sentences Telehealth Telehealth Location of provider rendering services: practice address Location of patient: address on file Patient Identification confirmed using: Name, : Yes Telehealth method: voice only Patient verbally consented to treatment: Yes Patient verbally consented to billing insurance company: Yes Patient informed of any privacy concerns related to visit: Yes Assessment & Plan Assessment & Plan (1) Diabetes mellitus: Code(s): E11.9 - Type 2 diabetes mellitus without complications Category: Medical (2) Phimosis: Code(s): N47.1 - Phimosis Category: Medical (3) Balanitis: Code(s): N48.1 - Balanitis Category: Medical Plan Risks, benefits and alternatives to therapy were discussed. These include but are not limited to infection, bleeding, damage to local organs and tissues, need for further interventions. Anesthetic risks regarding cardiac arrhythmia, blood clots, and potential mortality were discussed. The patient understands the typical recovery time and the outpatient nature of the procedure. After consideration of these risks the patient gives full informed consent and they wish to move ahead with the procedure. Plan circumcision Patient Instructions: This note is constructed using voice recognition software. While every effort has been made to ensure accuracy forestry and wildlife manager errors may have been included. Imaging studies, laboratory and physical exam results were discussed and reviewed in detail. No major barriers to patient understanding were identified. An opportunity to ask questions regarding the treatment plan was provided. All questions were answered. The patient expressed understanding and agreement with the above treatment plan. The patient is aware they should contact our office by phone for worsening of their current condition or the appearance of new urologic symptoms. Compliance is encouraged with any medications and followup testing that is ordered. It is a privilege to participate in the urologic care of your patient. If you have any questions or concerns regarding treatment for the above conditions, or other urologic issues, please do not hesitate to contact me. The office telephone contact is [phone]. Sincerely, Dr Candido Chery MD, [facility] - Urology Compassionate Specialist Care for the Genitourinary System Coding Level of Care Code Tele Est Pt Level 4 (02540) Diagnoses Diabetes mellitus E11.9 Phimosis N47.1 Balanitis N48.1
== END 2025-02-28 14:14 | disposition home or self-care (01) ==
LOC: HO.HUSH 13:09
PROVIDERS: PCP Internal Medicine; Visit Provider Urology
DX: N47.1 Phimosis (principal); N48.1 Balanitis; E11.9 Type 2 diabetes mellitus without complications
CPT/HCPCS: 99214

== ENCOUNTER 2025-04-25 10:45 | Day surgery (SDC) | payer OTHER, SELFPAY ==
--- OUTSIDE RECORDS SUMMARY | 2025-03-25 13:07 | XMS_ITS | Clinical Summary ---
Author Organization [employer] Address [address] [place] [address] Care Team Providers Care Feller Machine Operator Name Role Phone April Sadler MD Primary Care Provider + Allergies Active Allergy Reactions Criticality Noted Date [...] 2 times daily. 30 tablet 4 Active glipiZIDE (Glucotrol) 10 MG tablet Take 1 tablet by mouth Once per day. 5 Active metFORMIN (Glucophage) 500 MG tablet Take 1 tablet by mouth 2 times daily. 5 Active Active Problems Problem Noted Date Diagnosed Date Type 2 diabetes mellitus wit h hyperglycemia, without long-term current use of insulin 02/27/2025 Assessment & Plan (02/28/2025 3:36 PM EDT): Controlled. A1c is at goal. Continue on metformin and glipizide Counseled re more frequent low calorie/carb meals. Check fgstk 1x daily Encouraged physical activity as tolerated. FU in 1 months. Elevated blood pressure reading 02/27/2025 Assessment & Plan (02/28/2025 3:35 PM EDT): No history of hypertension Counseled re low salt diet/increase moderate physical activity. Check home BP BIW and prn CP/HUYNH/REYNA Follow-up with me in 1 month with labs Shivam 02/27/2025 Assessment & Plan (02/28/2025 3:36 PM EDT): Resolved, he is scheduled for circumcision Sexually transmitted disease counseling 02/28/20 Assessment & Plan (02/28/2025 3:37 PM EDT): Discussed with patient regarding protected intercourse at all times We discussed about local resources including STI clinic, condom samples and PrEP Agreed to STI testing Trismus 03/15/2024 History of tooth extraction 02/17/2024 Dental abscess 02/06/2024 Encounters Date Type Department Care Team Description 03/19/2025 Telephone [facility] [address] [place] [phone] April Sadler MD Appointment Request 02/27/2025 9:30 AM EDT Office Visit [facility] [address] [place] [phone] April Sadler MD Type 2 diabetes mellitus with hyperglycemia, without long-term current use of insulin ([facility] (Primary Dx); Elevated blood pressure reading; Sexually transmitted disease counseling; Shivam 02/27/2025 Travel 02/26/2025 Telephone [facility] [address] [place], [place] [phone] April Sadler MD chart prep 02/18/2025 Patient Outreach [facility] [address] [place], [place] [id number] Yung Muniz MD Pre-visit Planning (SDOH screening negative and Tobacco screening negative) from Last 3 Months Immunizations Immunization Administration Dates Next Due DT (pediatric) 12/10/1998 Hep B, Adolescent or Pediatric 08/28/2001,2000,12/10/1998 MMR 02/10/2001 Social History Tobacco Use Types Packs/Day Years [...] off services in your home? No 02/18/2025 Depression Answer Date Recorded Patient Health Questionnaire-2 Score 0 02/27/2025 Internet Access Answer Date Recorded Internet Access [...] Sign Reading Time Taken Comments Blood Pressure 155/85 02/27/2025 9:20 AM EDT Pulse 85 02/27/2025 9:20 AM EDT Temperature 36.1 ??C (97 ??F) 02/27/2025 9:20 AM EDT Respiratory Rate - - Oxygen Saturation 99% 02/27/2025 9:20 AM EDT Inhaled Oxygen Concentration - - Weight 106 kg (233 lb 4 oz) 02/27/2025 9:20 AM E DT Height 175.3 cm (5' 9 ) 02/27/2025 9:20 AM EDT Body Mass Index 34.45 02/27/2025 9:20 AM EDT Plan of Treatment Health Maintenance Due Date Last Done Comments Diabetes: Hemoglobin A1C 1988 HIV Screening 1988 Lipid Panel 1988 Eye Exam 1998 Alcohol/Substance Use Screening 2000 Family Planning (PISQ) 2003 Hepatitis C Screening 2006 DTaP/Tdap/Td Vaccines (1 - Tdap) 2007 Diabetes: Urine Protein Screening 2007 Hepatitis A Vaccines (1 of 2 - Risk 2-dose series) 2007 Pneumococcal Vaccine: Pediatrics (0 to 5 Years) and At-Risk Patients (6 to 49) Years (1 of 2 - PCV) 2007 Dental Oral Exam 09/15/2023 03/15/2023 Dental Prophylaxis 09/15/2023 03/15/2023 Dental X-Ray: Bitewings 03/16/2024 03/15/2023 COVID-19 Vaccine ( - 2023- season) 2024 Influenza Vaccine (Season Ended) 2025 SDOH Screening 02/18/2026 02/18/2025 Depression Screening 02/27/2026 02/27/2025, 02/28/20 Diabetes: Foot Exam 02/27/2026 02/27/2025, 02/27/2025, 02/27/2025, Additional history exists Disability Screening 02/27/2026 02/27/2025 Tobacco Screening 02/27/2026 02/27/2025 Dental X-Ray: Full Mouth 03/16/2027 024, 01/30/2024, [...] Most Recently Relevant to Health Maintenance Insurance N PARTIAL [facility] PPO DENTAL - HSN PARTIAL (MEDICAID) Care Teams Feller Machine Operator Relationship Specialty Start Date End Date April Sadler MD [address] [place] [id number] PCP - General Internal Medicine 02/27/25
--- NOTE | 2025-04-24 10:41 | HO.ANESPROP2 ---
Documented by User: Manasa Martínez NP 04/24/25 10:43 HPI - Anesthesia Eval Consult details Narrative: 34yo M for Circumcision PMFSH Active Problems Active Problems: All Active Problems Balanitis (Chronic) Phimosis (Acute) Diabetes mellitus (Acute) Past Medical History Medical History (Updated 04/24/25 @ 10:41 by Manasa Martínez NP) Diabetes mellitus Social History Social History (System 03/06/25 @ 14:34 by Barbra Sinclair) Patient Tobacco Use Status: Never used Tobacco Use of substances other than those prescribed or required for medical reasons: Yes Are you DNR?: No Advance Directives: No Advance Directives Information Provided: Yes Poor oral hygiene: No Meds Allergies Allergy/AdvReac Type Severity Reaction Status Date / Time Penicillins (PENICILLINS) Allergy Intermediate Unknown Verified 04/25/25 11:08 Exam Pertinent Lab Results Pertinent Lab Results: Laboratory Tests 09/30/24 02/26/25 17:25 07:55 WBC 8.3 Hgb 15.0 Hct 41.5 L Plt Count 224 Sodium 141 Potassium 4.1 Chloride 108 Carbon Dioxide 27 BUN 19 H Creatinine 0.91 Hemoglobin A1c % 5.9 Narrative Narrative: EKG 09/2024 Vent. Rate : 088 BPM Atrial Rate : 088 BPM P-R Int : 136 ms QRS Dur : 082 ms QT Int : 340 ms P-R-T Axes : 045 008 026 degrees QTc Int : 411 ms Normal sinus rhythm Normal ECG No previous ECGs available Assessment and Plan Assessment Anesthesia Assessment: Chart Reviewed Documented by User: Jaleel Alcaraz MD 04/25/25 12:27 PMFSH Past Medical History Medical History (Updated 04/24/25 @ 10:41 by Manasa Martínez NP) Diabetes mellitus Family History Family history of problems with anesthesia: No Surgical History History of Problems with Anesthesia: No Social History Social History (System 03/06/25 @ 14:34 by Barbra Sinclair) Patient Tobacco Use Status: Never used Tobacco Use of substances other than those prescribed or required for medical reasons: Yes Are you DNR?: No Advance Directives: No Advance Directives Information Provided: Yes Poor oral hygiene: No Meds Allergies Allergy/AdvReac Type Severity Reaction Status Date / Time Penicillins (PENICILLINS) Allergy Intermediate Unknown Verified 04/25/25 11:08 Exam Airway Mallampati Class: II TM Dist: >3cm Neck ROM: Full Loose/Missing/Broken Teeth: Yes, Upper and Lower Heart: ok Lungs: ok Assessment and Plan Assessment Anesthesia Assessment: Anesthesia Plan Discussed Final Anesthetic Review Family History of Problems with Anesthesia: No History of Problems with Anesthesia: No NPO: Yes ASA Class: II Final Preanesthetic Review: No Changes in Pt Med Stat, Meds/Allgs Chart Reviewed, Consent Obtained/Reviewed and Anes Risks/Benef Reviewed Patient Risk: Intermediate Procedure Risk: Low Anesthetic Plan Anesthetic Plan: GA and Agree w/ Assess. and Plan Disposition: Standard PACU
[2025-04-25 11:09] VITALS: BMI 33.9
[2025-04-25 11:17] VITALS: BP 144/70; PULSE 86; RESP 16; TEMP 36.4; O2SAT 97
[2025-04-25 11:28] LABS: Glucose, Whole Blood 127 mg/dL (60-115)
[2025-04-25] MEDS: Lactated Ringers 1,000 ML 100 ML IVCONT (11:39)
--- NOTE | 2025-04-25 13:11 | MHC.SHP ---
Pre-Procedural Eval Section A - 24 Hr Update-Section A only Date of Service: 04/25/25 The patient is an INPATIENT: No Changes since office visit: No Cold of Flu in the past 2 weeks, No New Medical Problems, No Changes in Medication and No Patient answered all questions The patient has been examined within 24 hours of the surgical procedure. The History & Physical has been completed within 30 days and I have reviewed it.: Yes Section B - Complete if H&P > 30 days Chief Complaint: Balanitis Details of Present Illness: circumcision Allergies: Allergies Allergy/AdvReac Type Severity Reaction Status Date / Time Penicillins (PENICILLINS) Allergy Intermediate Unknown Verified 04/25/25 11:08 Plan I have reviewed the history and physical and performed a pertinent physical examination on my patient. No changes have occurred unless specified. Time Spent With Patient Time: Total time managing care of this patient today ____ minutes.
--- NOTE | 2025-04-25 14:22 | P.OP_ITS ---
Operative Note Operative Note Date of Service: 04/25/25 Narrative: PreOperative Diagnosis: Balanitis and phimosis Post Operative Diagnosis: Balanitis and phimosis Procedure: Circumcision Surgeon: Dr Candido Chery Anesthesia: General Indications for procedure: Recurring balanitis in inability to withdrawal foreskin of penile glans in setting of diabetes. Risks and benefits including bleeding, scarring, need for revision surgery been discussed. Procedure: After informed consent was verified the patient was brought to the operating room and placed in a supine position. Anesthesia was administered per protocol. The patient was prepped and draped sterile fashion. Safety pause time-out was performed. Antibiotics have been given. The penis was examined and proximal incision marked that lay just proximal to the resting position of the penile sulcus. This was followed around the circumference of the penis. A penile ring block was performed using 1% lidocaine with no epinephrine. Approximately 8 cc. The proximal incision was developed with sharp blade running circumferentially around the penis. The skin was to give a 1 cm separation between the foreskin in the remaining penile shaft skin. The foreskin was withdrawn and the penile glans exposed. A a distal incision was made approximately 5 mm proximal to the penile sulcus. At the area of the frenulum care was taken to empty the penile frenulum intact. Using clamps the dorsal skin was elevated. Using Metzenbaum scissors the avascular plane was entered and proximal and distal incision were joined. The bridging skin was elevated and clamped. It was then divided using Bovie. The sleeve of tissue was then removed circumferentially around the penis using cautery in order to minimize bleeding. The shaft was then examined in any bleeding areas were controlled. More local anesthetic was injected into the plane beneath avascular plane to help with post procedure pain management. The skin edges after they were appropriately examined low reapposed. A 3-0 chromic suture was placed at 12:00 o'clock and 06:00 o'clock positions. Interrupted 3-0 was then placed the 09:00 o'clock and 3 o'clock position. Each quadrant was then filled with 3 sutures using 4-0 chromic. At the completion of the procedure there was adequate hemostasis. The incision was washed and dried. Antibiotic cream was applied to the incision. A Yumi wrap was applied followed by a Coban dressing. Xeroform gauze had been used to cover antibiotic ointment. He tolerated the procedure well and was extubated in the room and transferred in stable condition to the recovery area. Pathology: Foreskin Drains: none
[2025-04-25 14:25] VITALS: BP 101/57; PULSE 72; RESP 16; TEMP 36.6; O2SAT 99
[2025-04-25 14:30] VITALS: BP 95/54; PULSE 73; RESP 16; O2SAT 99
[2025-04-25 14:35] VITALS: BP 100/52; PULSE 71; RESP 16; O2SAT 99
[2025-04-25 14:40] VITALS: BP 101/55; PULSE 71; RESP 16; O2SAT 100
[2025-04-25 14:45] VITALS: BP 111/59; PULSE 83; RESP 16; O2SAT 97
== END 2025-04-25 15:17 | disposition home or self-care (01) ==
PROVIDERS: PCP Internal Medicine; Visit Provider Urology
PROC: (CPT 54161; principal; 2025-04-25 13:20)
DX: N48.1 Balanitis (principal); N47.1 Phimosis; E11.9 Type 2 diabetes mellitus without complications; Z79.84 Long term (current) use of oral hypoglycemic drugs; Z88.0 Allergy status to penicillin
CPT/HCPCS: 54161; 82947; 88304; J0131; J0690; J1100; J1885; J2003; J2250; J2405; J2704; J2795; J3010

== ENCOUNTER → 2025-04-25 10:45 | Outpatient (BNV) | payer OTHER, SELFPAY | PROVIDERS: PCP Internal Medicine; Visit Provider Urology | DX: N47.1 Phimosis (principal); N48.1 Balanitis | CPT/HCPCS: 54161 ==

== ENCOUNTER 2025-05-22 14:00 | Outpatient (AMB) | payer OTHER, SELFPAY ==
--- NOTE | 2025-05-22 14:09 | MHC.OFFVIS ---
Intake Visit Reasons: Circumcision follow up Intake Note: Patient is present for: POST-OP CIRCUMCISION Urology Medication:NONE Blood Thinner:none Locker Room Supervisor Required: No Accompanied by: Self / Same As Patient Allergies Penicillins (PENICILLINS) Allergy (Intermediate, Verified 05/22/25 14:12) Unknown HPI Comments Details: Rebel is a pleasant male. 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 Follow-up from circumcision HbA1c has fallen dramatically to 5.9 Healing well Mild degree of edema on left side of penis Discussed healing process [facility] Medical History (Updated 04/24/25 @ 10:41 by Manasa Martínez NP) Diabetes mellitus Social History (System 03/06/25 @ 14:34 by Barbra Sincliar) Patient Tobacco Use Status: Never used Tobacco Review of Systems Const Denies chills and Denies fever(s) Card Reports no additional complaints and Denies syncope Resp Denies cough GI Denies abdominal pain and Denies heartburn Reports as per HPI and Denies change in libido Neuro Denies syncope Psych Denies change in libido Endo Denies change in libido Physical Exam Const General: cooperative, healthy appearing, comfortable and no acute distress Orientation/consciousness: patient oriented x3 HEENT Face and sinus: Yes normal facial exam Mouth: moist mucous membranes Neck Neck: Yes normal visual inspection, Yes full ROM and Yes trachea midline Chest Chest palpation & inspection: normal inspection of the chest Resp Effort & Inspection: normal respiratory effort, able to speak in complete sentences and no respiratory distress GI Inspection: Yes normal to inspection Back/Spine/Pelvis Cervical Spine: normal cervical lordosis Thoracic/Lumbar Spine: thoracic and lumbar spine normal to inspection Skin General skin exam: no rashes or lesions noted Neuro General: patient oriented x3, gait normal, tone normal and moves all extremities Extrem General: Yes normal to inspection and Yes capillary refill normal Assessment & Plan Assessment & Plan (1) Balanitis: Code(s): N48.1 - Balanitis Category: Medical (2) Phimosis: Code(s): N47.1 - Phimosis Category: Medical Plan P.r.n. follow-up Patient Instructions: This note is constructed using voice recognition software. While every effort has been made to ensure accuracy editor publications errors may have been included. Imaging studies, laboratory and physical exam results were discussed and reviewed in detail. No major barriers to patient understanding were identified. An opportunity to ask questions regarding the treatment plan was provided. All questions were answered. The patient expressed understanding and agreement with the above treatment plan. The patient is aware they should contact our office by phone for worsening of their current condition or the appearance of new urologic symptoms. Compliance is encouraged with any medications and followup testing that is ordered. It is a privilege to participate in the urologic care of your patient. If you have any questions or concerns regarding treatment for the above conditions, or other urologic issues, please do not hesitate to contact me. The office telephone contact is [phone]. Sincerely, Dr Candido Chery MD, JAIME [facility] - Urology Compassionate Specialist Care for the Genitourinary System Coding Level of Care Code Global (69138) Diagnoses Balanitis N48.1 Phimosis N47.1
--- OUTSIDE RECORDS SUMMARY | 2025-05-22 14:22 | XMS_ITS | Clinical Summary ---
Author Organization [employer] Address 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 Name Role Phone April Sadler MD [...] Encounters Date Type Department Care Team Description 04/25/2025 Orders Only GENERIC EXTERNAL DATA DEPARTMENT Provider, Generic External Data 03/19/2025 Telephone [facility] [address] [place] [phone] April Sadler MD Appointment Request 02/27/2025 9:30 AM EDT Office Visit [facility] [address] [place] [phone] April Sadler MD Type 2 diabetes mellitus with hyperglycemia, without long-term current use of insulin ([facility]) (Primary Dx); Elevated blood pressure reading; Sexually transmitted disease counseling; Shivam 02/27/2025 Travel 02/26/2025 Telephone [facility] [address] [place], [place] [phone] April Sadler MD chart prep from Last 3 Months Immunizations Immunization Administration [...] 85 02/27/2025 9:20 AM EDT Temperature 36.1 C (97 F) 02/27/2025 9:20 AM EDT Respiratory Rate - [...] Use Screening 2000 Family Planning (PISQ) 2003 HPV Vaccines (1 - Male 3-dose series) 2003 Hepatitis C Screening 2006 DTaP/Tdap/Td Vaccines [...] Bitewings 03/16/2024 03/15/2023 COVID-19 Vaccine ( - season) 2024 Influenza Vaccine (#1) 2025 SDOH Screening 02/18/2026 02/18/2025 Depression Screening [...] Procedure Name Priority Date/Time Associated Diagnosis Comments GROSS AND MICROSCOPIC LEVEL 3 Routine 04/25/2025 2:08 PM EDT GLUCOSE, WHOLE BLOOD Routine 04/25/2025 11:24 AM EDT PANORAMIC RADIOGRAPHIC IMAGE Routine 03/15/2024 10:30 AM EDT PROPHYLAXIS - ADULT Routine 03/15/2023 8 :00 AM EDT BITEWINGS - 4 RADIOGRAPHIC IMAGES Routine 03/15/2023 8:00 AM EDT PERIODIC ORAL EVALUATION - ESTABLISHED PATIENT Routine 03/15/2023 8:00 AM EDT from Last 3 Months or Most Recently Relevant to Health Maintenance Results * Gross and Microscopic Level 3 (04/25/2025 2:08 PM EDT) 04/25/2025 2:08 PM EDT 04/26/2025 9:38 AM EDT [facility] - 04/29/2025 12:04 PM EDT ----- ------- Name: Rebel Meadows Jr Age/Sex: 34/M : 1990 Unit#: [id number] Attend Dr: Candido Chery MD Re04/25/25 Status: [facility] Location: [facility] Disch: ----- ------- SPEC : [id number] RECD: 04/26/25 STATUS: ANITA GUSTAFSON NUM: [id number] CHERYL: 04/25/[address] [facility] [address]: Candido Chery MD ENTERED: 04/26/25 SP TYPE: Surgical OTHR DR: April Sadler MD ORDERED: Gross Micro L3 Diagnosis Foreskin, circumcision: Skin with focal minimal chronic inflammation and focal dermal hyalinization in keeping with phimosis. Clinical History Balanitis Microscopic Description Microscopic sections reviewed. Material Received Foreskin Gross Description Received in formalin labeled foreskin is a 6.5 x 5.0 cm wrinkled, butterfly-shaped portion of galvez brown foreskin excised to a maximum depth of 0.5 cm. No erosions or ulcers are identified. The margins are inked and the specimen is serially sectioned to reveal homogeneous galvez-white fibrous cut surfaces. Pretzel Twister sections are submitted in a cassette labeled A1. CEDS IHC S/NG Disclaimer NOTE: Unless otherwise stated, all tissue is formalin-fixed and paraffin-embedded. Some or all of the immunohistochemical tests reported herein may have been developed and their performance characteristics determined by [facility]. They have not been cleared or approved by the U.S. Food and Drug Administration (FDA). However, the FDA has determined that such clearance or approval is not necessary. This laboratory is certified under the Clinical Laboratory Improvement Amendments of 1988 (CLIA) as qualified to perform high complexity clinical laboratory testing. Copies To: Candido Chery MD [facility] [address] [place] [address] Drive [address] [place] [address] CONTINUED ON NEXT PAGE ----- ------- Name: Rebel Meadows Jr Age/Sex: 34/M : 1990 Unit#: [id number] Attend Dr: Candido Chery MD Re04/25/25 Status: [facility] Location: [facility] Disch: ----- ------- SPEC : [id number] RECD: 04/26/25 STATUS: ANITA GUSTAFSON NUM: [id number] CHERYL: 04/25/25-[address] [facility] [address]: Candido Chery MD ENTERED: 04/26/25 SP TYPE: Surgical OTHR DR: April Sadler MD ORDERED: Gross Micro L3 Copies To: (Continued) April Sadler MD [address] [address] ----- ------- Signed (signature on file) Pastora Daniels 04/29/25 1204 ----- ------- END OF REPORT Generic External Data Provider LAB CYTOLOGY ORDE RABLES Final Result Performing Organization Address City/[facility]/ZIP Co de Phone Number [facility] [address] [place] [address] [phone] * (ABNORMAL) Glucose, Whole Blood (04/25/2025 11:24 AM EDT) Glucose, Whole Blood 127(H) 60 - 115 mg/dL [facility] Comment:METER #: [id number] 04/25/2025 11:2 4 AM EDT 04/25/2025 11:27 AM EDT Generic External Data Provider LAB BLOOD ORDERAB LES Final Result Performing Organization Address City/[facility]/ZIP Co de Phone Number [facility] [address] [place] [address] [phone] from Last 3 Months Insurance N PARTIAL BCBS PPO DENTAL - HSN PARTIAL (MEDICAID) Care Teams Crusher Plant Operator Relationship Specialty Start Date End Date April Sadler MD [address] [place] [phone] PCP - General Internal Medicine 02/27/25
== END 2025-05-22 14:25 | disposition home or self-care (01) ==
PROVIDERS: PCP Internal Medicine; Visit Provider Urology
DX: N48.1 Balanitis (principal); N47.1 Phimosis
CPT/HCPCS: 99024